=== PATIENT | male | born 1960 | race Caucasian/White ===

== ENCOUNTER 2017-04-22 17:38 | Emergency (ER) | payer OTHER ==
[2017-04-22] MEDS ORDERED: NORMAL SALINE 1,000 ML IV SCH (19:15)
--- NOTE | 2017-04-22 19:17 | ERNOTE ---
ER Male HPI Date of Service: 04/22/17 Stated Complaint: MONDAY SURGERY. UNABLE TO PEE.FEVER ER Male: other - Difficulty urinating, Fever Time Seen by Provider: 04/22/17 18:58 Source: patient, family, RN notes reviewed Exam Limitations: no limitations Immunizations: IMMUNIZATION HX Immunizations Up to Date Yes History of Influenza Vaccine Yes Hx Pneumococcal Vaccination No Allergies/Adverse Reactions: Allergies No Known Drug Allergies Allergy (Verified 04/22/17 17:46) Home Medications: HOME MEDICATIONS Ibuprofen [Motrin] 400 mg PO Q6H PRN 12/16/15 [Last Taken Unknown] Ciprofloxacin HCl [Cipro] 500 mg PO BID #28 tablet 04/22/17 [Last Taken Unknown] - History of Present Illness Narrative: Freddy is a 56 year old male brought to the ED by his for a fever and difficulty urinating. He had a laparascopic cholecystectomy on 04/17/17. This was done here by Dr. Mcintyre. He has been feeling like he cannot completely empty his bladder since the surgery. He also reports having some dysuria and urinary frequency. He was taking Percocet and became constipated. This resolved with stool softeners. He has not had any more Percocet for 3 days. He has not been eating or drinking well all week. He reports not drinking much because he does not want to have to urinate more than he already does. He began feeling ill today. He denies having any urinary problems in the past. A bladder scan was done after the patient had voided for a urine sample. It showed a residual over 200 ml. Prior Treatment: Present: recently seen, treated by physician. Absent: recently hospitalized, currently on antibiotics Review of Systems - Review of Systems Constitutional: Present: fever, chills, fatigue, malaise EYE: Present: no symptoms reported ENT: Present: no symptoms reported Respiratory: Absent: shortness of breath, cough Cardiology: Absent: chest pain, palpitations Gastrointestinal/Abdominal: Present: nausea, eating less, drinking less. Absent : vomiting Genitourinary: Present: frequency, dysuria, decreased urinary output. Absent: hematuria Musculoskeletal: Absent: back pain, muscle pain Skin: Absent: rash, lesions Neurological: Absent: headache, dizziness/light-headedness Endocrine: Present: no symptoms reported Hematologic/Lymphatic: Present: no symptoms reported Psych: Present: no symptoms reported - Patient's Past Medical History Patient History - Medical: Other - Avascular necrosis right hip Patient History - Cardiac/Respiratory: No pertinent hx Patient History - Cancer: No Hx of Cancer Patient History - Surgical Procedures: Cholecystectomy, Colonoscopy, Total Hip Replacement Patient History - Other: None - Family History Father Family History - Medical: , Other Family History - Cardiac/Respiratory: Pneumonia Family History - Cancer: No pertinent family hx Mother Family History - Medical: No pertinent hx Family History - Cardiac/Respiratory: No pertinent hx Family History - Cancer: No pertinent family hx Brother Family History - Medical: No pertinent hx Family History - Cardiac/Respiratory: No pertinent hx Family History - Cancer: No pertinent family hx Sister Family History - Medical: No pertinent hx Family History - Cardiac/Respiratory: No pertinent hx Family History - Cancer: No pertinent family hx - Social History Living Situations: spouse Abuse History: No History of abuse Psych History: No pertinent hx Smoking Status: Former smoker Have you smoked in the past 12 months: No Do you dip or chew tobacco: No Alcohol Use: none Drug Use: none - Immunizations Immunizations Up to Date: Yes Hx Pneumococcal Vaccination: No History of Influenza Vaccine: Yes Physical Exam - Physical Exam General Appearance: Present: alert, thin, other - In no acute distress but appears to not feel well Neck: Present: normal inspection, nontender, supple Respiratory: Present: no respiratory distress, normal breath sounds, no accessory muscle use, lungs clear Cardiovascular/Chest: Present: regular rate, rhythm, no murmur Gastrointestinal/Abdominal: Present: normal bowel sounds, nondistended, soft, tenderness - suprapubic, other - Laparascopic incisions healing well without redness or drainage. Absent: guarding, mass Back Exam: Present: normal inspection, no CVA tenderness Extremity Exam: Present: normal inspection, normal range of motion Neurological Exam: Present: alert, oriented, normal mood/affect, no motor/ sensory deficits Skin Exam: Present: warm/dry, pallor ED Progress - Results and Orders Patient's Lab Results:: I have reviewed the patient's lab results. - Vital Signs Patient's Vital Signs:: I have reviewed the patient's vital signs. Vital Signs: Vital Signs 04/22/17 17:40 Temperature 37.9 C H Pulse Rate 100 Respiratory 16 Rate Blood Pressure 157/93 O2 Sat by Pulse 96 Oximetry - Progress/Reassessment Chief Complaint: Genitourinary Problem Progress:: Improved Progress Note-Subjective: 04/22/17 20:40 Patient states he is feeling better after IV fluids. His color has improved. Discussed with Dr. Villa, agreed that prostatits is likely the cause of the urinary symptoms and fever, started on Cipro. Patient has f/u scheduled with Dr. Mcintyre next week, agreeable to returning for worsening symptoms. Stressed need to increase fluid intake. Departure Clinical Impression: Prostatitis, acute - Departure Disposition: Home Follow Up Needed Condition: Stable Instructions: Prostatitis, [id number] Additional Instructions: DRINK MORE WATER OK to take Tylenol or ibuprofen for pain if you do not wish to take anymore Percocet Contact Dr. Mcintyre or return to the ER for worsening symptoms - otherwise follow up with him next week as scheduled Referrals: Fernando Ngo DO [Primary Care Provider] - Lio Mcintyre MD [Staff Physician] - Prescriptions: Ciprofloxacin HCl [Cipro] 500 mg PO BID #28 tablet
[2017-04-22 19:28] LABS: Urine Appearance Slightly Cloudy; Urine Bacteria TRACE; Urine Bilirubin Negative (NEGATIVE); Urine Blood 5 /ul (NEGATIVE); Urine Color Dark Yellow; Urine Ketone 5 mg/dL (NEGATIVE); Urine Nitrite Negative (NEGATIVE); Urine Protein Negative (NEGATIVE); Urine RBC TRACE /hpf (0-5); Urine Urobilinogen Normal (NORMAL); Urine WBC TRACE /hpf (0-5); Urine pH 6.5 pH (5.0-7.0)
[2017-04-22 19:29] LABS: Urine Mucus Moderate - 2+
[2017-04-22 19:34] LABS: Hematocrit 45.8 % (42.0-52.0); Mean Cell Volume 84.8 fl (78-100); Mean Corpuscular Hemoglobin 29.6 pg (27-31); Mean Corpuscular Hgb Conc 34.9 g/dl (32-36); Neutrophil # 10.3 K/mm3 (1.3-6.0); Neutrophil % 84.4 % (42-75.0); Platelet Count 238 K/mm3 (150-450); Red Cell Distribution Width 12.5 % (11.5-14.0); White Blood Count 12.2 K/mm3 (4.0-10.5)
[2017-04-22] MEDS ORDERED: ONDANSETRON HCL/PF 2 MG/ML VIAL ONE (19:42)
[2017-04-22] MEDS ORDERED: ONDANSETRON HCL/PF 2 MG/ML VIAL IV ONE (19:44)
[2017-04-22 19:45] LABS: Albumin * 3.7 gm/dl (3.4-5.0); Anion Gap 12.2 mmol/L (6.8-13.8); BUN/Creatinine Ratio 14.3 (9.0-21.6); Bilirubin, Total 0.5 mg/dL (0.0-1.1); Ca. Corrected For Albumin 8.7 mg/dL (8.4-10.2); Calcium * 8.8 mg/dL (7.9-10.9); Carbon Dioxide 25.1 mmol/L (24-32.6); Potassium 3.3 mmol/L (3.4-4.6); Total Protein 7.4 gm/dL (6.2-8.2)
[2017-04-22] MEDS ORDERED: CIPROFLOXACIN HCL 250 MG TABLET PO ONE (20:19)
[2017-04-22] MEDS ORDERED: CIPROFLOXACIN HCL 250 MG TABLET ONE (20:40)
[2017-04-22 21:26] VITALS: BP 116/75
== END 2017-04-22 20:45 | disposition home or self-care (01) ==
LOC: ER 17:38
PROC: BT20ZZZ Computerized Tomography (CT Scan) of Bladder (ICD-10-PCS; principal; 2017-04-22)
DX: Z87.891 Personal history of nicotine dependence; N41.0 Acute prostatitis
CPT/HCPCS: 36415; 51798; 80053; 81001; 83605; 85025; 87040; 96374; 99284; J2405